=== PATIENT | male | born 1945 | race Two or more races ===

== ENCOUNTER 2017-03-14 13:45 | Outpatient (RCR) | payer OTHER ==
[~2017-03-14 13:45] MED LIST: AMLODIPINE BESY10 MG ORAL; ASPIRIN-LOW81 MG ORAL; ATORVASTATIN CA40 MG ORAL; BENAZEPRIL HCL40 MG ORAL; COQ1050 MG PO; HYDROCHLOROTHIA25 MG ORAL
== END 2017-03-15 | disposition home or self-care (01) ==
LOC: PTY 13:45
PROVIDERS: ATTEND Internal Medicine
DX: M54.16 Radiculopathy, lumbar region (principal)

== ENCOUNTER 2017-03-22 10:00 | Outpatient (RCR) | payer OTHER | END 2017-04-14 | disposition home or self-care (01) | LOC: PTY 10:00 | PROVIDERS: ATTEND Internal Medicine | DX: M54.16 Radiculopathy, lumbar region (principal) | CPT/HCPCS: 97110; 97140; G0283 ==

== ENCOUNTER 2017-04-19 12:55 | Outpatient (RCR) | payer OTHER | END 2017-05-15 | disposition home or self-care (01) | LOC: PTY 12:55 | PROVIDERS: ATTEND Internal Medicine | DX: M54.16 Radiculopathy, lumbar region (principal) ==